=== PATIENT | male | born 1950 | race Two or more races ===

== ENCOUNTER 2018-12-16 12:56 | Outpatient (CLI) | payer MEDICARE ==
[~2018-12-16] VITALS: Ht 167.6 cm; Wt 72.6 kg
[2018-12-16 13:50] VITALS: BP 114/80
[2018-12-16] MEDS ORDERED: CYCLOBENZAPRINE10 MG ORAL (13:50)
[2018-12-16] MEDS ORDERED: PROTONIX40 MG ORAL (13:50)
[2018-12-16] MEDS ORDERED: ATORVASTATIN CA80 MG ORAL (13:50)
[2018-12-16] MEDS ORDERED: LOSARTAN POTASS25 MG ORAL (13:50)
[2018-12-16] MEDS ORDERED: TRAMADOL HCL50 MG ORAL (13:50)
--- NOTE | 2018-12-16 20:00 | Consultation ---
DATE OF CONSULTATION: 12/16/2018 CHIEF COMPLAINT: Abdominal pain. HISTORY OF PRESENT ILLNESS: The patient is a very pleasant 68-year-old male with past medical history of hypertension, hypercholesteremia, history of kidney stones and gallstones status post cholecystectomy presented with complaint of left mid and lower abdominal pain usually attacking at night and waking him in the middle of the night, 10/10 associated with some nausea, but no vomiting. No change in bowel habits. No bleeding. He had an endoscopy and colonoscopy at [facility] about a year ago, nondiagnostic. The patient had a CT with contrast, which showed significant atherosclerosis, but no obvious intraabdominal process. PAST MEDICAL HISTORY: 1. Hypertension. 2. Hypercholesterolemia. 3. Kidney stone. 4. Gallstones. PAST SURGICAL HISTORY: Cholecystectomy. MEDICATIONS: Please see medication reconciliation list. ALLERGIES: Lisinopril. FAMILY HISTORY: Father had CVA. SOCIAL HISTORY: The patient denies any tobacco, alcohol, or drug abuse. REVIEW OF SYSTEMS: A 10-point review of systems was performed and pertinent positives in HPI. PHYSICAL EXAMINATION: VITAL SIGNS: Temperature 99, blood pressure , pulse is 80, respirations 20. HEENT: Normocephalic and atraumatic. Sclerae anicteric. NECK: Supple. No evidence of lymphadenopathy. CARDIOVASCULAR: Regular rate and rhythm. Plus S1 and S2. No obvious murmur. LUNGS: Decreased breath sounds bilaterally based on supine exam. ABDOMEN: Soft. Minimal tenderness to palpation in the left lower quadrant and left mid abdomen. No rebound. No guarding. No peritoneal sign. EXTREMITIES: No cyanosis, no clubbing, no edema. 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 Plan to do a CT angio for further evaluation. symptoms that the patient has been having. We will follow the patient after CT and make further recommendation. Arya Henry M.D. DR: Caro JOB#: [id number] CC:
== END 2018-12-16 15:40 | disposition home or self-care (01) ==
LOC: PAN 12:56
DX: R10.30 Lower abdominal pain, unspecified (principal); I10 Essential (primary) hypertension; E78.00 Pure hypercholesterolemia, unspecified; Z87.442 Personal history of urinary calculi; Z90.49 Acquired absence of other specified parts of digestive tract; Z88.8 Allergy status to other drugs, medicaments and biological substances
CPT/HCPCS: 99202

== ENCOUNTER 2019-01-15 13:23 | Outpatient (CLI) | payer MEDICARE ==
[~2019-01-15 13:23] MED LIST: ATORVASTATIN CA80 MG ORAL; CYCLOBENZAPRINE10 MG ORAL; LOSARTAN POTASS25 MG ORAL; PROTONIX40 MG ORAL; TRAMADOL HCL50 MG ORAL
--- NOTE | 2019-01-15 14:10 | General Progress Note ---
Assessment/Plan Problem List: (1) Abdominal pain ICD Codes: R10.9 - Unspecified abdominal pain SNOMED: [id number] Assessment/Plan: CT and SBFT reviewed patient abd pain has resolved cont probiotics and prn Flexoril Subjective ROS Limited/Unobtainable: Yes Allergies: Coded Allergies: ACETAMINOPHEN (Verified Allergy, Mild, 12/16/18) COUGH HYDROCODONE (Verified Allergy, Mild, 12/16/18) COUGH LISINOPRIL (Verified Allergy, Mild, 12/16/18) COUGH Objective General Appearance: alert EENT: normal ENT inspection Neck: supple Cardiovascular: normal rate Respiratory/Chest: lungs clear Abdomen: normal bowel sounds, non tender, soft Extremities: non-tender Arya Henry MD Jan 15, 2019 14:10
[2019-01-15 15:33] VITALS: BP 120/80
== END 2019-01-15 15:23 | disposition home or self-care (01) ==
LOC: PAN 13:23
DX: R10.9 Unspecified abdominal pain (principal); Z88.6 Allergy status to analgesic agent; Z88.8 Allergy status to other drugs, medicaments and biological substances
CPT/HCPCS: 99212